=== PATIENT | female | born 1980 | race Caucasian/White ===

== ENCOUNTER 2017-03-06 12:34 | Emergency (ER) | payer OTHER ==
[~2017-03-06] VITALS: Ht 167.6 cm; Wt 81.4 kg
[2017-03-06 12:40] VITALS: BP 122/82; PULSE 81; RESP 15; O2SAT 99
--- NOTE | 2017-03-06 13:39 | ED.REPORT ---
HPI-Syncope Date of Service Mar 06, 2017 ED Provider: Dr. Ulloa The pt is a 36 y/o 24 weeks female () with a no pertinent hx who presents to the ED from [facility] urgent care due to lightheadedness, onset 2 hours ago. The pt fell to her hands and knees but did not lose consciousness. She states "I felt spacey". 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. She denies shortness of breath, signs or symptoms of urinary tract infection, change in appetite and fluid intake and any other sx at this time. heart tones were recorded at 140 in urgent care prior to arrival. She is able to feel the baby move and is not experiencing abdominal cramps and vaginal bleeding. In the ED, the pt is asymptomatic and states she feels fine. Nursing Notes Stated Complaint: NEAR SYNCOPE Chief Complaint: General Complaint Nursing Notes Reviewed: Yes Allergies: Coded Allergies: No Known Allergies (Unverified , 03/06/17) General Time Seen by Provider: 13:48 Chief Complaint Almost passed out Hx Obtained From: Patient Arrived By: Walk-in Onset Occurred: 1 - 4 hours ago Symptom Duration: 1 - 15 minutes Severity: Current: No pain currently Severity: Maximum: No pain Recent Healthcare: No recent doctor visit Similar Sx Previous: No Past Medical History Past Medical History Chronic eczems Amenorrhea Past Surgical History none reported Smoking History Never Smoker Social History Alcohol Use: Denies alcohol use Drug Use: Denies drug use Ambulatory Status Independent Review of Systems Denies: change in appetite and fluid intake. Respiratory: Denies: Shortness of breath Cardiovascular: Reports: Palpitations (with rapid heart rate) GI: Denies: Abdominal pain Neurologic: Reports: Lightheaded, Denies: Change LOC Complete sys rev & neg: except as marked. Additional Review of Systems Female: Denies: Vaginal bleeding - abnl Physical Exam Initial Vital Signs Vital Signs (First) Date Time Temp Pulse Resp B/P Pulse Ox O2 Delivery O2 Flow Rate FiO2 03/06/17 12:40 36.4 81 15 122/82 99 Room Air Initial VS: Reviewed Head / Eyes: Atraumatic, Normocephalic Abdomen / GI: Soft, Non-tender, No guarding, No rebound, No distention Upper Extremities: Vascular intact, Neuro intact, No swelling, No tenderness Skin: Warm, Dry, No cyanosis General/Constitutional: Awake, Alert, No acute distress, Well appearing, Cooperative Respiratory / Chest: Atraumatic, Breath sounds NL, Breath sounds = bilat, No respiratory distress, No rales, No rhonchi, No wheezing Cardiovascular: Heart rate NL, Regular rhythm, Heart sounds NL, No gallop, No murmurs, No rubs Lower Extremity / Pelvis / MS: Atraumatic, Full range of motion, No swelling, Non-tender, No deformity, Neurologic intact, Vascular intact Neurologic: Oriented X3, Speech NL, No motor deficits, No sensory deficits Interpretation & Diagnostics Lab Results Interpretation Result Diagram: 03/06/17 1437 03/06/17 1437 Test 03/06/17 14:37 White Blood Count 7.8th/mm3 (3.8-10.1) Red Blood Count 3.36mil/mm3 (3.90-5.20) Hemoglobin 10.5g/dL (12.0-15.6) Hematocrit 31.6% (35.0-46.0) Mean Corpuscular Volume 94.0fL (81-100) Mean Corpuscular Hemoglobin 31.3pg (27.0-35.0) Mean Corpuscular Hemoglobin Concent 33.2% (32.0-37.0) Red Cell Distribution Width 13.5% (12.3-15.4) Platelet Count 175bil/L (150-400) Neutrophils (%) (Auto) 74.5% (40-74) Lymphocytes (%) (Auto) 16.4% (14-46) Monocytes (%) (Auto) 7.0% (4-12) Eosinophils (%) (Auto) 1.5% (0-5) Basophils (%) (Auto) 0.3% (0-3) D-Dimer 0.58mg/L FEU (<0.50) Sodium Level 137mEq/L (134-144) Potassium Level 4.0mEq/L (3.5-5.2) Chloride Level 103mEq/L (97-108) Carbon Dioxide Level 18mmol/L (18-29) Blood Urea Nitrogen 10mg/dL (6-20) Creatinine 0.40mg/dL (0.57-1.00) Estimat Glomerular Filtration Rate 257mL/min (>59) Glucose Level 80mg/dL (60-99) Calcium Level 9.0mg/dL (8.5-10.1) Magnesium Level 1.8mg/dL (1.6-2.6) Total Bilirubin 0.2mg/dL (0.0-1.2) Aspartate Amino Transf (AST/SGOT) 21U/L (0-50) Alanine Aminotransferase (ALT/SGPT) 13U/L (0-32) Alkaline Phosphatase 73U/L (25-150) Troponin T < 0.010ug/L (0.0-0.011) Total Protein 6.8g/dL (6.4-8.4) Albumin 3.8g/dL (3.4-5.0) ECG Interpretation ECG Interpretation: ECG from [facility] urgent care: Normal sinus rhythm. Rate 82. Time: 12:05 Interpreted by: ED physician Re-Eval/Medical Decision Med Decision/Clinical Course Presyncopal episode associated with heart racing at rest. EKG, troponin, blood pressure in the ER all reassuring. D-dimer is minimally outside of range however when adjusted for is considered normal. Patient is asymptomatic; ambulatory to and from the restroom without event. Recommend close outpatient follow-up with OB in the primary care doctor for outpatient Holter monitor and further diagnostic eval. Re-Evaluation/Progress : Time of Eval: 15:34 Patient Status: Condition resolved Re-Evaluation/Progress Note: Rechecked pt. She had no difficulty ambulating and feels great. Discussed lab results, diagnosis and plan to discharge. Pt understands and agrees with the plan. F/U instruction and RTER warning given. All questions addressed. Counseled Regarding: Diagnosis, Lab results, Need for follow-up, When/why to return to ED Discharge & Departure Impression: Primary Impression: Near syncope Disposition: Home Discharge Condition All VS Reviewed: Yes Condition: Stable Additional Instructions: Follow-up with your [employer] and your regular doctor regarding your episode today. You should have further workup which may include a echocardiogram or a Holter monitor. Return to the ER if you have persistent palpitations lasting more than 5 minutes , an episode of passing out, or other concerns Referrals: Drea Iraheta (PCP) Scribe Attestation Portions of this note were transcribed by Kristen Gomez. I,, personally performed the history,physical exam and medical decision-making;I reviewed and confirmed the accuracy of the information in the transcribed note. Signed by Maryjane Verma. 03/06/17 copies to: Drea Iraheta Timothy S DO Mar 06, 2017 13:39 Kristen Gomez Mar 06, 2017 13:54
[2017-03-06] MEDS ORDERED: 0.9% Sodium Chloride 1,000 ML IV ONE (13:53)
[2017-03-06 14:44] LABS: BASOPHILS % (AUTO) 0.3 % (0-3); EOSINOPHILS % (AUTO) 1.5 % (0-5); Mean Corpuscular Hemoglobin 31.3 pg (27.0-35.0); NEUTROPHILS % (AUTO) 74.5 % (40-74); Platelet Count 175 bil/L (150-400)
[2017-03-06 15:13] LABS: TROPONIN T < 0.010 ug/L (0.0-0.011)
[2017-03-06 15:20] LABS: Magnesium 1.8 mg/dL (1.6-2.6)
[2017-03-06 15:47] VITALS: BP 120/77; PULSE 93; RESP 16; O2SAT 96
== END 2017-03-06 15:48 | disposition home or self-care (01) ==
LOC: SED 12:34
DX: O26.812 Pregnancy related exhaustion and fatigue, second trimester (principal); R55 Syncope and collapse; Z3A.24 24 weeks gestation of pregnancy
CPT/HCPCS: 36415; 80053; 83735; 84484; 85025; 85378; 96360; 99284; J7030